=== PATIENT | male | born 1960 | race Caucasian/White ===

== ENCOUNTER 2017-08-22 18:16 | Emergency (ER) | payer BC ==
[2017-08-22 18:43] VITALS: BP 175/91
== END 2017-08-22 20:50 | disposition left against medical advice (07) ==
LOC: DL.ED 18:16
DX: Z53.21 Procedure and treatment not carried out due to patient leaving prior to being seen by health care provider (principal)

== ENCOUNTER 2022-11-13 16:09 | Emergency (ER) | payer MEDICARE, MEDICAID ==
[2022-11-13 16:53] VITALS: BP 139/106; PULSE 78
== END 2022-11-13 17:25 | disposition home or self-care (01) ==
LOC: DL.ED 16:09
DX: K02.9 Dental caries, unspecified (principal); I25.10 Atherosclerotic heart disease of native coronary artery without angina pectoris; E78.00 Pure hypercholesterolemia, unspecified; I10 Essential (primary) hypertension; E11.9 Type 2 diabetes mellitus without complications; Z86.73 Personal history of transient ischemic attack (TIA), and cerebral infarction without residual deficits; Z79.899 Other long term (current) drug therapy; Z79.84 Long term (current) use of oral hypoglycemic drugs; Z79.82 Long term (current) use of aspirin
CPT/HCPCS: 99282; 99283